=== PATIENT | female | born 1955 | race Caucasian/White ===

== ENCOUNTER 2021-03-09 16:18 | Inpatient (IN) | payer BC ==
[~2021-03-09] VITALS: Ht 157.5 cm; Wt 72.3 kg
[~2021-03-09 16:18] MED LIST: ASPI-482 PO; ATOR20TA58 PO; CLOP75TA PO; DIAZ5TAB PO; HYDR-3164 PO; LISI20TA18 PO; METO25TA4 PO; NAPR-695 PO
[2021-03-09] MEDS ORDERED: NITROGLYCERIN SUBLINGUAL 0.4 MG BOTTLE OF 25. SL PRN ×3 (16:30→18:30)
[2021-03-09 16:34] LABS: BASO # 0.3 x10^3/uL (0.0-0.2); BASO % 2 % (0-3); EOS # 0.4 x10^3/uL (0.0-0.7); EOS % 2 % (0-3); HEMATOCRIT 39.2 % (36.0-47.0); HEMOGLOBIN 13.2 g/dL (12.0-15.5); LYMPH # 6.5 x10^3/uL (1.0-4.8); LYMPH % 40 % (24-48); MEAN CORPUSCULAR HEMOGLOBIN 30 pg (25-35); MEAN CORPUSCULAR HGB CONC 34 g/dL (31-37); MEAN CORPUSCULAR VOLUME 89 fL (79-100); MONO # 1.7 x10^3/uL (0.0-1.1); MONO % 10 % (0-9); NEUT # 7.3 x10^3/uL (1.8-7.7); NEUT % 45 % (31-73); PLATELET COUNT 305 x10^3/uL (140-400); RED BLOOD COUNT 4.39 x10^6/uL (3.50-5.40); RED CELL DISTRIBUTION WIDTH 14.1 % (11.5-14.5); WHITE BLOOD COUNT 16.1 x10^3/uL (4.0-11.0)
--- NOTE | 2021-03-09 16:38 | PHYS DOC ---
Past Medical History Past Medical History: MS Past Surgical History: Other Additional Past Surgical Histo: cardiac stents Smoking Status: Current Every Day Smoker Alcohol Use: Rarely Drug Use: None General Adult EDM: Chief Complaint: CHEST PAIN HPI: HPI: Patient is a 65-year-old patient presenting via EMS for chest pain. Onset was 45 minutes ago while at rest. Patient was apparently shopping earlier in the day and was dropped off at her home by daughter. Reports shortly after being at home while at rest she developed substernal chest pain that radiated to left upper extremity. Nothing known made better or worse. Patient took an 81 mg aspirin in addition to previously taken 81 mg aspirin in the morning that did not significantly relieve her pain prompting her to call EMS. On arrival, patient found to be hemodynamically stable but there was concern for STEMI. She was subsequently given an additional 162 mg aspirin, 50 mcg intranasal fentanyl, and rushed to our ER emergently for evaluation. On arrival, patient still complaining of substernal chest pain radiating to left upper extremity that she rates 10/10 in severity. She admits history of CAD with numerous stents last of which was placed at our facility approximately 3 years ago. She has since been following in outpatient setting with [facility]'s cardiology team. She states she has been compliant with all medications, no major changes in health, no recent sick contacts or travel. She is fully vaccinated against COVID-19 Review of Systems: Review of Systems: Fourteen body systems of review of systems have been reviewed. See HPI for pertinent positives and negative responses, other infante all other systems are negative, non-pertinent or non-contributory Heart Score: C/O Chest Pain: Yes HEART Score for Chest Pain: HEART Score for Chest Pain Response (Comments) Value History Highly Suspicious [address] Depression 2 Age >45 - < 65 1 Risk Factors >3 Risk Factors or Hx CAD 2 Troponin >1-<3x Normal Limit 1 Total 8 Risk Factors: Risk Factors: DM, Current or recent (<one month) smoker, HTN, HLP, family history of CAD, obesity. Risk Scores: Score 0 - 3: 2.5% MACE over next 6 weeks - Discharge Home Score 4 - 6: 20.3% MACE over next 6 weeks - Admit for Clinical Observation Score 7 - 10: 72.7% MACE over next 6 weeks - Early Invasive Strategies Current Medications: Current Medications Medications (Trade) Dose Ordered Sig/Bianca Start Time Stop Time Status Last Admin Dose Admin Nitroglycerin (Nitrostat) 0.4 mg PRN Q5MIN PRN 03/09/21 16:30 Allergies: Allergies: Allergies Coded Allergies Type Severity Reaction Last Updated Verified No Known Drug Allergies 01/03/14 No Physical Exam: PE: Constitutional: Well developed, well nourished, acute distress due to pain HENT: Normocephalic, atraumatic, bilateral external ears normal, oropharynx moist, no oral exudates, nose normal. Eyes: PERRLA, EOMI, conjunctiva normal, no discharge. Neck: Normal range of motion, no tenderness, supple, no stridor. Cardiovascular: Heart rate regular, sinus rhythm, no murmurs rubs or gallops Lungs & Thorax: Bilateral breath sounds clear to auscultation Abdomen: Bowel sounds normal, soft, no tenderness, no masses, no pulsatile masses. Nonsurgical abdomen, no peritoneal signs Skin: Warm, dry, no erythema, no rash. Back: No tenderness, no CVA tenderness. Extremities: No tenderness, no cyanosis, no clubbing, ROM intact, no edema. Neurologic: Alert and oriented X 3, grossly normal motor & sensory function, no focal deficits noted. Psychologic: Anxious affect and mood Current Patient Data: Labs: Laboratory Tests Test 03/09/21 16:17 White Blood Count 16.1 x10^3/uL Red Blood Count 4.39 x10^6/uL Hemoglobin 13.2 g/dL Hematocrit 39.2 % Mean Corpuscular Volume 89 fL Mean Corpuscular Hemoglobin 30 pg Mean Corpuscular Hemoglobin Concent 34 g/dL Red Cell Distribution Width 14.1 % Platelet Count 305 x10^3/uL Neutrophils (%) (Auto) 45 % Lymphocytes (%) (Auto) 40 % Monocytes (%) (Auto) 10 % Eosinophils (%) (Auto) 2 % Basophils (%) (Auto) 2 % Neutrophils # (Auto) 7.3 x10^3/uL Lymphocytes # (Auto) 6.5 x10^3/uL Monocytes # (Auto) 1.7 x10^3/uL Eosinophils # (Auto) 0.4 x10^3/uL Basophils # (Auto) 0.3 x10^3/uL Sodium Level 136 mmol/L Potassium Level 3.4 mmol/L Chloride Level 100 mmol/L Carbon Dioxide Level 24 mmol/L Anion Gap 12 Blood Urea Nitrogen 13 mg/dL Creatinine 0.8 mg/dL Estimated GFR (Cockcroft-Gault) 72.4 BUN/Creatinine Ratio 16 Glucose Level 155 mg/dL Calcium Level 8.7 mg/dL Total Bilirubin 0.2 mg/dL Aspartate Amino Transf (AST/SGOT) 34 U/L Alanine Aminotransferase (ALT/SGPT) 46 U/L Alkaline Phosphatase 144 U/L Troponin I High Sensitivity 141 ng/L IF-Bki-J-Type Natriuretic Peptide 212 pg/mL Total Protein 6.7 g/dL Albumin 3.0 g/dL Albumin/Globulin Ratio 0.8 Current Medications Medications (Trade) Dose Ordered Sig/Bianca Route PRN Reason Start Time Stop Time Status Last Admin Dose Admin Nitroglycerin (Nitrostat) 0.4 mg PRN Q5MIN PRN SL CP RATING > 04/0903/09/21 16:30 03/09/21 17:49 DC 03/09/21 16:54 Nitroglycerin (Nitrostat) 0.4 mg PRN Q5MIN PRN SL CHEST PAIN 03/09/21 16:30 Fentanyl Citrate (Fentanyl 2ml Vial) 50 mcg 1X ONCE IVP 03/09/21 17:30 03/09/21 17:31 DC 03/09/21 17:37 Fentanyl Citrate (Fentanyl 2ml Vial) 50 mcg 1X ONCE IVP 03/09/21 17:30 03/09/21 17:31 DC 03/09/21 18:44 Heparin Sodium (Porcine) (Heparin Sodium) 4,000 unit 1X ONCE IV 03/09/21 18:00 03/09/21 18:01 DC 03/09/21 18:46 Heparin Sodium/ Dextrose 250 ml @ 9 mls/hr CONT PRN IV PER PROTOCOL 03/09/21 18:00 03/09/21 18:48 Heparin Sodium (Porcine) (Heparin Sodium) 1,900 unit PRN Q6HRS PRN IV FOR UFH LEVEL LESS THAN 0.2 03/09/21 18:00 Ceftriaxone Sodium (Rocephin) 1 gm Q24H IVP 03/09/21 18:00 Potassium Chloride (Klor-Con) 40 meq 1X ONCE PO 03/09/21 18:00 03/09/21 18:01 DC 03/09/21 18:40 Acetaminophen (Tylenol) 650 mg PRN Q4HRS PRN PO FEVER > 100.3'F 03/09/21 18:30 03/10/21 18:29 Nitroglycerin (Nitrostat) 0.4 mg PRN Q5MIN PRN SL CHEST PAIN 03/09/21 18:30 03/10/21 18:29 UNV Vital Signs: Vital Signs Date Time Temp Pulse Resp B/P (MAP) Pulse Ox O2 Delivery O2 Flow Rate FiO2 03/09/21 16:18 97.8 55 18 161/77 (105) 95 Room Air 97.8 EKG: EKG: EKG ordered and interpreted by myself at 1614 hrs. as sinus bradycardia at 51 bpm, unremarkable intervals, no axis deviation, T wave inversion noted in lead aVL, no STEMI repeat EKG ordered and itnerpretted by myself at 1800hrs as SR at 59bpm, unremarkable intervals, no axis deviation, persistant AVL T-wave depressions, no STEMI (confirmed by Defensive Driving Instructor attending as no STEMI) Radiology/Procedures: Radiology/Procedures: EXAMINATION: XR CHEST 1V CLINICAL HISTORY: Chest pain EXAM DATE/TIME: 03/09/2021 4:36 PM COMPARISON: None FINDINGS: Lines, Tubes, and Devices: None. Cardiomediastinal Silhouette: Normal heart size. Aortic atherosclerotic calcification. Lungs and Pleura: Mild patchy opacities in the bilateral lower lung zones and nonspecific interstitial prominence. No evidence of pleural effusion or pneumothorax. Bones and Soft Tissues: No acute osseous abnormality. IMPRESSION: Mild patchy airspace disease and bilateral lower lung zones and nonspecific interstitial prominence. Electronically signed by: Jacob Lozano DO (03/09/2021 5:38 PM) [facility] Course & Med Decision Making: Course & Med Decision Making Airway patent, breathing unlabored, IV access and vitals obtained grossly no nconcerning EKG obtained at bedside nonconcerning for ST elevation MS History, physical exam and comprehensive ER work-up obtained concerning for elevated troponin and an extremely high risk individual. Patient took x1 sublingual nitro with improvement in pain but sided headache, did not want to take anymore. As such, a total of 100 mcg fentanyl given while in ER with improvement in pain I contacted on-call sample display preparer attending and reviewed EKG findings and my concern for unstable angina with inferior T wave abnormalities. No emergent need for heart catheterization but joint decision made to start heparin drip and continue to monitor pain closely with low threshold to start nitro drip I contacted hospitalist and discussed need for admission to [facility], Dr. Condon agreed to need and accepted patient under his care I have updated patient and daughter at bedside on plan of care that included hospital admission for further inpatient medical management, cardiac observation and potential need for heart cath given history. They were amenable All questions and concerns patient and daughter had addressed. Patient confirms she is full code at time of admission. Critical Care Time This patient required critical care. Due to the fact that the patient required a significant amount of one on one physician - patient contact time, ordering and review of studies, arranging urgent treatment with development of a management plan, evaluation of patients response to treatment with frequent reassessments, and discussions with other providers this patient required 35 minutes of critical care time. Critical care time was indicated due to the inherent i nstability and/or potential for instability in this patient. The critical care time that is allocated to this patient is above and beyond any time spent on any other billable procedures performed on this patient. [employer] Disclaimer: [employer] Disclaimer: This electronic medical record was generated, in whole or in part, using a voice recognition dictation system. Departure Departure Impression: Primary Impression: Unstable angina Additional Impression: Presence of stent in coronary artery in patient with coronary artery disease Disposition: ADMITTED INPATIENT Admitting Physician: MARSHA (dr condon) Condition: GUARDED Referrals: LUCIA MELCHOR (PCP) DILIP SERNA DO Mar 09, 2021 16:38
[2021-03-09 16:52] LABS: CALCIUM 8.7 mg/dL (8.5-10.1); CREATININE 0.8 mg/dL (0.6-1.0); GFR 72.4; POTASSIUM 3.4 mmol/L (3.5-5.1)
[2021-03-09 16:57] LABS: ALBUMIN/GLOBULIN RATIO 0.8 (1.0-1.7); TOTAL BILIRUBIN 0.2 mg/dL (0.2-1.0); TOTAL PROTEIN 6.7 g/dL (6.4-8.2)
[2021-03-09] MEDS ORDERED: fentaNYL PF VIAL 100 MCG/2 ML VIAL IVP ONE ×2 (17:30)
--- NOTE | 2021-03-09 17:41 | RAD ---
EXAMINATION: XR CHEST 1V CLINICAL HISTORY: Chest pain EXAM DATE/TIME: 03/09/2021 4:36 PM COMPARISON: None FINDINGS: Lines, Tubes, and Devices: None. Cardiomediastinal Silhouette: Normal heart size. Aortic atherosclerotic calcification. Lungs and Pleura: Mild patchy opacities in the bilateral lower lung zones and nonspecific interstitia l prominence. No evidence of pleural effusion or pneumothorax. Bones and Soft Tissues: No acute osseous abnormality. IMPRESSION: Mild patchy airspace disease and bilateral lower lung zones and nonspecific interstitial prominence. Electronically signed by: Jacob Lozano DO (03/09/2021 5:38 PM) [facility]
[2021-03-09] MEDS ORDERED: HEPARIN for IV BOLUS 10,000 UNIT/10 ML VIAL. IV PRN (18:00)
[2021-03-09] MEDS ORDERED: HEPARIN for IV BOLUS 10,000 UNIT/10 ML VIAL. IV ONE (18:00)
[2021-03-09] MEDS ORDERED: POTASSIUM CHLORIDE 20 MEQ TABLET.ER. PO ONE (18:00)
[2021-03-09] MEDS ORDERED: HEPARIN 25,000UTS/250ML PREMIX 250 ML IV PRN (18:00)
[2021-03-09] MEDS ORDERED: ACETAMINOPHEN 325 MG TABLET. PO PRN (18:30)
--- NOTE | 2021-03-09 19:10 | HP ---
DATE OF SERVICE: 03/09/2021 ADMIT DATE: 03/09/2021 CHIEF COMPLAINT: Chest pain. HISTORY OF PRESENT ILLNESS: The patient is a pleasant, middle-aged female who does smokes too much. She has 4 previous coronary stents. I discussed the case with ER physician. Her troponins were a little high. She appears to have symptoms of acute coronary syndrome. We are going to admit the patient, put on a heparin drip and consult Cardiology. PAST MEDICAL HISTORY: Coronary artery disease, 4 previous stents, tobacco abuse, myocardial infarction. MEDICATIONS: Reviewed. Please refer to the MRAD. REVIEW OF SYSTEMS: GENERAL: No history of weight change, weakness or fevers. SKIN: No bruising, hair changes or rashes. EYES: No blurred, double or loss of vision. NOSE AND THROAT: No history of nosebleeds, hoarseness or sore throat. HEART: She complained of chest pain. LUNGS: Denies cough, hemoptysis, wheezing or shortness of breath. GASTROINTESTINAL: Denies changes in appetite, nausea, vomiting, diarrhea or constipation. GENITOURINARY: No history of frequency, urgency, hesitancy or nocturia. NEUROLOGIC: Denies history of numbness, tingling, tremor or weakness. PSYCHIATRIC: No history of panic, anxiety or depression. ENDOCRINE: No history of heat or cold intolerance, polyuria or polydipsia. EXTREMITIES: Denies muscle weakness, joint pain, pain on walking or stiffness. PHYSICAL EXAMINATION: VITALS: Within normal limits and are stable. GENERAL: No apparent distress. Alert and oriented. HEENT: Normal cephalic atraumatic, external auditory canals are patent EYES: Extraocular muscles are intact, pupils are equally round and reactive to light and accommodation MUSCULOSKELETAL: Well developed, well nourished, good range of motion ENDOCRINE: No thyromegaly was palpated LYMPHATICS: No cervical chain or axillary nodes were noted HEMATOPOIETIC: No bruising NECK: Supple, no JVD, no thyromegaly was noted. LUNGS: Clear to auscultation in all lung jessica without rhonchi or wheezing. HEART: RRR, S1, S2 present. Peripheral pulses intact, no obvious murmurs were noted. ABDOMEN: Soft, nontender. Positive bowel sounds no organomegaly, normal bowel sounds. EXTREMITIES: Without any cyanosis, clubbing, or edema. Pedal pulses intact, Homans sign is negative. NEUROLOGIC: She is weak. PSYCHIATRIC: She is depressed. SKIN: She seems to be a ageing probably from the cigarettes. VASCULAR: Good capillary refill, neurovascular bundle appears to be intact. LABORATORY DATA: Potassium is little low at 3.4. Troponin is high at 141. BNP 212, alkaline phosphatase 144. White count 16, hemoglobin 13, platelets 305. DIAGNOSTIC DATA: Chest x-ray shows mild patchy airspace disease in bilateral lower lung zones and nonspecific interstitial prominence. ASSESSMENT AND PLAN: Chest pain with elevated troponin, leukocytosis, abnormal chest x-ray. The patient will be admitted. We will start heparin drip. Cardiac monitoring, serial enzymes, serial EKGs. Consult Cardiology. Empiric IV Rocephin. Home meds. Deep venous thrombosis prophylaxis. Full code. Suspect she might go to the lab aid, but we will await Cardiology input. Prognosis guarded. PB/MODESTA DR: Disha TID: [id number]
[2021-03-09] MEDS: MORPHINE SULFATE 2 MG/ML INJ. IVP PRN (20:53)
[2021-03-10] VITALS (11 sets, daily range): BP systolic 121–160; BP diastolic 60–84
[2021-03-10] MEDS: MORPHINE SULFATE 2 MG/ML INJ. IVP PRN ×4 (00:42→13:47)
[2021-03-10] MEDS ORDERED: ONDANSETRON PF 4 MG/2 ML VIAL. IVP PRN (01:30)
[2021-03-10] MEDS ORDERED: NITROGLYCERIN PREMIX 250 ML IV PRN (02:15)
[2021-03-10 02:45] LABS: HEMATOCRIT 39.1 % (36.0-47.0); HEMOGLOBIN 13.1 g/dL (12.0-15.5); RED BLOOD COUNT 4.38 x10^6/uL (3.50-5.40); RED CELL DISTRIBUTION WIDTH 14.3 % (11.5-14.5)
--- NOTE | 2021-03-10 02:57 | NUR ---
Dr. Ferrara called and alerted of pts. rhythm, rate, pain level and earlier troponin level. Order taken.
--- NOTE | 2021-03-10 04:29 | EKG ---
[facility] [address] [place] [address] Test Date: 2021-03-09 Test Time: 16:14:05 Pat Name: ARIE MAHONEY Department: Room: Gender: F Germ Drier: [id number] : 1955 Requested By: DILIP SERNA Order Number: [id number] Reading MD: Measurements Intervals [place] Rate: 51 P: 56 KS: 182 QRS: 40 QRSD: 92 T: 89 QT: 464 QTc: 430 Interpretive Statements SINUS RHYTHM CONSIDER RIGHT VENTRICULAR HYPERTROPHY ST & T ABNORMALITY, CONSIDER HIGH LATERAL ISCHEMIA OR LEFT VENTRICULAR STRAIN ABNORMAL ECG RI6.01 No previous ECG available for comparison
--- NOTE | 2021-03-10 07:00 | NUR ---
Dr. Ferrara contacted and alerted of pts troponin increase. Dr. Ferrara requested consents to be signed for cardiac cath. Info passed to nurse Osorio while in report.
[2021-03-10] MEDS ORDERED: LIDOCAINE 1% PF 2 ML VIAL. ONE (08:51)
[2021-03-10] MEDS ORDERED: IODIXANOL 320 MG/ML 100 ML VIAL. ONE ×2 (08:51→09:42)
[2021-03-10] MEDS ORDERED: FLU VACC QUAD 21-22 (6MOS+) PF 0.5 ML SYRINGE. VAX IM ONE (09:00)
[2021-03-10] MEDS ORDERED: VERAPAMIL 5 MG/2 ML VIAL. ONE (09:00)
[2021-03-10] MEDS ORDERED: NITROGLYCERIN 200 MCG/2 ML SYRINGE FOR CATH/VASC LAB. ONE (09:00)
[2021-03-10] MEDS ORDERED: fentaNYL PF VIAL 100 MCG/2 ML VIAL ONE (09:00)
[2021-03-10] MEDS ORDERED: HEPARIN for IV BOLUS 10,000 UNIT/10 ML VIAL. ONE (09:00)
[2021-03-10] MEDS ORDERED: MIDAZOLAM HCL/PF 5 MG/5 ML VIAL. ONE (09:00)
[2021-03-10] MEDS ORDERED: fentaNYL PF VIAL 100 MCG/2 ML VIAL IV ONE (09:15)
[2021-03-10] MEDS ORDERED: HEPARIN for IV BOLUS 10,000 UNIT/10 ML VIAL. IART ONE (09:15)
[2021-03-10] MEDS ORDERED: LIDOCAINE 1% PF 2 ML VIAL. INJ ONE (09:15)
[2021-03-10] MEDS ORDERED: NITROGLYCERIN 200 MCG/2 ML SYRINGE FOR CATH/VASC LAB. IART ONE (09:15)
[2021-03-10] MEDS ORDERED: VERAPAMIL 5 MG/2 ML VIAL. IART ONE (09:15)
[2021-03-10] MEDS ORDERED: IODIXANOL 320 MG/ML 100 ML VIAL. IART ONE (09:15)
[2021-03-10] MEDS ORDERED: MIDAZOLAM HCL/PF 5 MG/5 ML VIAL. IV ONE (09:15)
--- NOTE | 2021-03-10 09:19 | PDOC ---
MODERATE SEDATION ASSESSMENT RISKS/ALTERNATIVES Risks/Alternatives Risks and alternatives of this type of sedation and procedure discussed with: RISK/ALTERNATIVES: Patient H & P ON CHART H & P H & P on chart and reviewed for co-morbid conditions and appropriate labs. H&P ON CHART: Yes STATUS PREG STATUS ASSESSED: N/A MEDS/ALLERGIES REVIEWED Meds/Allergies Reviewed Medications and Allergies including time and route of recently administered narcotics and sedatives. MEDS/ALLERGIES REVIEWED: Yes ASA RATING ASA RATING: III AIRWAY ASSESSMENT Airway Assessment Airway patency, oral function limitations, presence of caps, crowns, dentures, partials, and ability to extend neck assessed. AIRWAY ASSESSMENT: Yes MALLAMPATI SCORE MALLAMPATI SCORE: II PRE-SEDATION ASSESSMENT PRE-SEDATION ASSESSMENT: Yes ALFREDO TIDWELL MD Mar 10, 2021 09:19
--- NOTE | 2021-03-10 09:19 | PDOC2 ---
CONSULT Date of Consult Date of Consult DATE: 03/10/21 TIME: 09:19 Reason for Consult Reason for Consult: Chest pain and elevated troponin level Referring Physician Referring Physician: Dr. Condon Identification/Chief Complaint Chief Complaint Chest pain Source Source: Chart review, Patient History of Present Illness Reason for Visit: 65-year-old female with history of coronary artery disease s/p PCI/stents placement 12 years ago, being followed by [facility] cardiology presented with retrosternal chest pain radiating to left arm, 10/10 severity that started at 3 PM yesterday. The pain has been waxing and waning and upon my exam, she stated the pain was at 3/10 severity. She denied any orthopnea/PND, palpitations or syncope. Past Medical History Past Medical History Coronary artery disease s/p PCI/stents placement 12 years ago Hypertension Hyperlipidemia Family History Family History Positive for coronary artery disease Social History Social History Patient smokes half pack of cigarettes daily and admitted to social intake of alcohol. She denied any drug abuse. Current Problem List Problem List Problems Medical Problems: (1) Presence of stent in coronary artery in patient with coronary artery disease Status: Acute Current Medications Current Medications Current Medications Nitroglycerin (Nitrostat) 0.4 mg PRN Q5MIN PRN SL CP RATING > 1/10 Last administered on 03/09/21at 16:54; Start 03/09/21 at 16:30; Stop 03/09/21 at 17:49; Status DC Nitroglycerin (Nitrostat) 0.4 mg PRN Q5MIN PRN SL CHEST PAIN; Start 03/09/21 at 16:30 Fentanyl Citrate (Fentanyl 2ml Vial) 50 mcg 1X ONCE IVP Last administered on 03/09/21at 17:37; Start 03/09/21 at 17:30; Stop 03/09/21 at 17:31; Status DC Fentanyl Citrate (Fentanyl 2ml Vial) 50 mcg 1X ONCE IVP Last administered on 03/09/21at 18:44; Start 03/09/21 at 17:30; Stop 03/09/21 at 17:31; Status DC Heparin Sodium (Porcine) (Heparin Sodium) 4,000 unit 1X ONCE IV Last administered on 03/09/21at 18:46; Start 03/09/21 at 18:00; Stop 03/09/21 at 18:01; Status DC Heparin Sodium/ Dextrose 250 ml @ 9 mls/hr CONT PRN IV PER PROTOCOL Last administered on 03/09/21at 18:48; Start 03/09/21 at 18:00 Heparin Sodium (Porcine) (Heparin Sodium) 1,900 unit PRN Q6HRS PRN IV FOR UFH LEVEL LESS THAN 0.2; Start 03/09/21 at 18:00 Ceftriaxone Sodium (Rocephin) 1 gm Q24H IVP Last administered on 03/10/21at 00:00; Start 03/09/21 at 18:00 Potassium Chloride (Klor-Con) 40 meq 1X ONCE PO Last administered on 03/09/21at 18:40; Start 03/09/21 at 18:00; Stop 03/09/21 at 18:01; Status DC Acetaminophen (Tylenol) 650 mg PRN Q4HRS PRN PO FEVER > 100.3'F; Start 03/09/21 at 18:30; Stop 03/10/21 at 18:29 Nitroglycerin (Nitrostat) 0.4 mg PRN Q5MIN PRN SL CHEST PAIN; Start 03/09/21 at 18:30; Stop 03/10/21 at 18:29; Status UNV Morphine Sulfate (Morphine Sulfate) 2 mg PRN Q2HR PRN IVP CHEST PAIN Last administered on 03/10/21at 07:48; Start 03/09/21 at 20:45 Ondansetron HCl (Zofran) 4 mg PRN Q6HRS PRN IVP NAUSEA/VOMITING Last administered on 03/10/21at 07:47; Start 03/10/21 at 01:30 Influenza Virus Vaccine Quadrival (Flulaval Quad [id number] Syringe) 0.5 ml ONCE ONCE VAX IM ; Start 03/10/21 at 09:00; Stop 03/10/21 at 09:01; Status DC Nitroglycerin/ Dextrose 250 ml @ 1.5 mls/hr CONT PRN IV SEE I/O RECORD Last administered on 03/10/21at 02:27; Start 03/10/21 at 02:15 Iodixanol (Visipaque 320) 100 ml STK-MED ONCE .ROUTE ; Start 03/10/21 at 08:51; Stop 03/10/21 at 08:51; Status DC Lidocaine HCl (Xylocaine-Mpf 1% 2ml Vial) 2 ml STK-MED ONCE .ROUTE ; Start 03/10/21 at 08:51; Stop 03/10/21 at 08:51; Status DC Heparin Sodium/ Sodium Chloride 1,000 ml @ As Directed STK-MED ONCE .ROUTE ; Start 03/10/21 at 08:51; Stop 03/10/21 at 08:51; Status DC Fentanyl Citrate (Fentanyl 2ml Vial) 100 mcg STK-MED ONCE .ROUTE ; Start 03/10/21 at 09:00; Stop 03/10/21 at 09:00; Status DC Midazolam HCl (Versed) 5 mg STK-MED ONCE .ROUTE ; Start 03/10/21 at 09:00; Stop 03/10/21 at 09:00; Status DC Heparin Sodium (Porcine) (Heparin Sodium) 10,000 unit STK-MED ONCE .ROUTE ; Start 03/10/21 at 09:00; Stop 03/10/21 at 09:00; Status DC Verapamil HCl (Verapamil) 5 mg STK-MED ONCE .ROUTE ; Start 03/10/21 at 09:00; Stop 03/10/21 at 09:00; Status DC Nitroglycerin (Nitroglycerin) 200 mcg STK-MED ONCE .ROUTE ; Start 03/10/21 at 09:00; Stop 03/10/21 at 09:00; Status DC Nitroglycerin (Nitroglycerin) 200 mcg 1X ONCE IART ; Start 03/10/21 at 09:15; Stop 03/10/21 at 09:16; Status DC Verapamil HCl (Verapamil) 2.5 mg 1X ONCE IART ; Start 03/10/21 at 09:15; Stop 03/10/21 at 09:16; Status DC Heparin Sodium (Porcine) (Heparin Sodium) 2,500 unit 1X ONCE IART ; Start 03/10/21 at 09:15; Stop 03/10/21 at 09:16; Status DC Heparin Sodium/ Sodium Chloride (HEPARIN for ARTERIAL LINE FLUSH) 1,000 unit 1X ONCE IART ; Start 03/10/21 at 09:15; Stop 03/10/21 at 09:16; Status DC Midazolam HCl (Versed) 5 mg 1X ONCE IV ; Start 03/10/21 at 09:15; Stop 03/10/21 at 09:16; Status DC Fentanyl Citrate (Fentanyl 2ml Vial) 100 mcg 1X ONCE IV ; Start 03/10/21 at 09:15; Stop 03/10/21 at 09:16; Status DC Iodixanol (Visipaque 320) 100 ml 1X ONCE IART ; Start 03/10/21 at 09:15; Stop 03/10/21 at 09:16; Status DC Lidocaine HCl (Xylocaine-Mpf 1% 2ml Vial) 2 ml 1X ONCE INJ ; Start 03/10/21 at 09:15; Stop 03/10/21 at 09:16; Status DC Active Scripts Active Reported Aspir 81 (Aspirin) 81 Mg Tablet.dr 1 Tab PO DAILY Clopidogrel (Clopidogrel Bisulfate) 75 Mg Tablet 1 Tab PO DAILY Metoprolol Tartrate 25 Mg Tablet 1 Tab PO BID Atorvastatin Calcium 20 Mg Tablet 1 Tab PO DAILY Lisinopril 20 Mg Tablet 1 Tab PO DAILY Allergies Allergies: Coded Allergies: No Known Drug Allergies (Unverified , 01/03/14) ROS PSYCHOLOGICAL ROS: No: Hallucinations Eyes: No Loss of vision HEENT: No: Epistaxis Respiratory: No: Hemoptysis, Shortness of breath Cardiovascular: yes Chest Pain Gastrointestinal: No Vomiting Genitourinary: No Hematuria Neurological: No Seizures Skin: No Rash Physical Exam General: Alert, Oriented X3 HEENT: Atraumatic Lungs: Clear to auscultation Heart: Regular rate Abdomen: Soft Extremities: No edema Neuro: Normal speech Psych/Mental Status: Mood NL Vitals VITALS Vital Signs Date Time Temp Pulse Resp B/P (MAP) Pulse Ox O2 Delivery O2 Flow Rate FiO2 03/10/21 08:18 20 94 Nasal Cannula 2.0 03/10/21 07:00 97.6 54 133/65 (87) 97.6 Labs Labs Laboratory Tests Test 03/09/21 16:17 03/09/21 22:47 03/10/21 02:30 White Blood Count 16.1 x10^3/uL (4.0-11.0) 12.0 x10^3/uL (4.0-11.0) Red Blood Count 4.39 x10^6/uL (3.50-5.40) 4.38 x10^6/uL (3.50-5.40) Hemoglobin 13.2 g/dL (12.0-15.5) 13.1 g/dL (12.0-15.5) Hematocrit 39.2 % (36.0-47.0) 39.1 % (36.0-47.0) Mean Corpuscular Volume 89 fL (79-100) 89 fL (79-100) Mean Corpuscular Hemoglobin 30 pg (25-35) 30 pg (25-35) Mean Corpuscular Hemoglobin Concent 34 g/dL (31-37) 34 g/dL (31-37) Red Cell Distribution Width 14.1 % (11.5-14.5) 14.3 % (11.5-14.5) Platelet Count 305 x10^3/uL (140-400) 272 x10^3/uL (140-400) Neutrophils (%) (Auto) 45 % (31-73) Lymphocytes (%) (Auto) 40 % (24-48) Monocytes (%) (Auto) 10 % (0-9) Eosinophils (%) (Auto) 2 % (0-3) Basophils (%) (Auto) 2 % (0-3) Neutrophils # (Auto) 7.3 x10^3/uL (1.8-7.7) Lymphocytes # (Auto) 6.5 x10^3/uL (1.0-4.8) Monocytes # (Auto) 1.7 x10^3/uL (0.0-1.1) Eosinophils # (Auto) 0.4 x10^3/uL (0.0-0.7) Basophils # (Auto) 0.3 x10^3/uL (0.0-0.2) Sodium Level 136 mmol/L (136-145) Potassium Level 3.4 mmol/L (3.5-5.1) Chloride Level 100 mmol/L (98-107) Carbon Dioxide Level 24 mmol/L (21-32) Anion Gap 12 (6-14) Blood Urea Nitrogen 13 mg/dL (7-20) Creatinine 0.8 mg/dL (0.6-1.0) Estimated GFR (Cockcroft-Gault) 72.4 BUN/Creatinine Ratio 16 (6-20) Glucose Level 155 mg/dL (70-99) Calcium Level 8.7 mg/dL (8.5-10.1) Total Bilirubin 0.2 mg/dL (0.2-1.0) Aspartate Amino Transf (AST/SGOT) 34 U/L (15-37) Alanine Aminotransferase (ALT/SGPT) 46 U/L (14-59) Alkaline Phosphatase 144 U/L (46-116) Troponin I High Sensitivity 141 ng/L (4-50) 639 ng/L (4-50) 2662 ng/L (4-50) RV-Esr-E-Type Natriuretic Peptide 212 pg/mL (0-124) Total Protein 6.7 g/dL (6.4-8.2) Albumin 3.0 g/dL (3.4-5.0) Albumin/Globulin Ratio 0.8 (1.0-1.7) Heparin Anti-Xa Act, Unfractionated 0.21 IU/mL (0.30-0.70) Laboratory Tests Test 03/09/21 16:17 03/09/21 22:47 03/10/21 02:30 White Blood Count 16.1 x10^3/uL (4.0-11.0) 12.0 x10^3/uL (4.0-11.0) Red Blood Count 4.39 x10^6/uL (3.50-5.40) 4.38 x10^6/uL (3.50-5.40) Hemoglobin 13.2 g/dL (12.0-15.5) 13.1 g/dL (12.0-15.5) Hematocrit 39.2 % (36.0-47.0) 39.1 % (36.0-47.0) Mean Corpuscular Volume 89 fL (79-100) 89 fL (79-100) Mean Corpuscular Hemoglobin 30 pg (25-35) 30 pg (25-35) Mean Corpuscular Hemoglobin Concent 34 g/dL (31-37) 34 g/dL (31-37) Red Cell Distribution Width 14.1 % (11.5-14.5) 14.3 % (11.5-14.5) Platelet Count 305 x10^3/uL (140-400) 272 x10^3/uL (140-400) Neutrophils (%) (Auto) 45 % (31-73) Lymphocytes (%) (Auto) 40 % (24-48) Monocytes (%) (Auto) 10 % (0-9) Eosinophils (%) (Auto) 2 % (0-3) Basophils (%) (Auto) 2 % (0-3) Neutrophils # (Auto) 7.3 x10^3/uL (1.8-7.7) Lymphocytes # (Auto) 6.5 x10^3/uL (1.0-4.8) Monocytes # (Auto) 1.7 x10^3/uL (0.0-1.1) Eosinophils # (Auto) 0.4 x10^3/uL (0.0-0.7) Basophils # (Auto) 0.3 x10^3/uL (0.0-0.2) Sodium Level 136 mmol/L (136-145) Potassium Level 3.4 mmol/L (3.5-5.1) Chloride Level 100 mmol/L (98-107) Carbon Dioxide Level 24 mmol/L (21-32) Anion Gap 12 (6-14) Blood Urea Nitrogen 13 mg/dL (7-20) Creatinine 0.8 mg/dL (0.6-1.0) Estimated GFR (Cockcroft-Gault) 72.4 BUN/Creatinine Ratio 16 (6-20) Glucose Level 155 mg/dL (70-99) Calcium Level 8.7 mg/dL (8.5-10.1) Total Bilirubin 0.2 mg/dL (0.2-1.0) Aspartate Amino Transf (AST/SGOT) 34 U/L (15-37) Alanine Aminotransferase (ALT/SGPT) 46 U/L (14-59) Alkaline Phosphatase 144 U/L (46-116) Troponin I High Sensitivity 141 ng/L (4-50) 639 ng/L (4-50) 2662 ng/L (4-50) CY-Cku-X-Type Natriuretic Peptide 212 pg/mL (0-124) Total Protein 6.7 g/dL (6.4-8.2) Albumin 3.0 g/dL (3.4-5.0) Albumin/Globulin Ratio 0.8 (1.0-1.7) Heparin Anti-Xa Act, Unfractionated 0.21 IU/mL (0.30-0.70) Assessment/Plan Assessment/Plan 1. Acute non-STEMI with ongoing chest pain. EKG without any acute ST elevations. Continue heparin infusion per protocol and proceed with cardiac catheterization and possible angioplasty. Risks and benefits were explained and she is agreeable. 2. Hypertension: Controlled 3. Hyperlipidemia: Continue statin therapy 4. Tobacco abuse: Advised on smoking cessation Thank you for your consultation ALFREDO TIDWELL MD Mar 10, 2021 09:19
[2021-03-10] MEDS ORDERED: BIVALIRUDIN 250 MG VIAL. IV ONE ×2 (09:37→10:00)
--- NOTE | 2021-03-10 10:53 | CARD ---
MR#: [id number] Date of Study: 03/10/2021 Ordering Physician: ALFREDO FERRARA, Referring Physician: ALFREDO FERRARA Tech: RT Rosemary(R) APPROVED REPORT Technologist: RT Rosemary(R) Nurse: Huyen Ramírez RN Procedure(s) performed: Left heart catheterization, selective coronary angiography and left ventricul ography via right transradial approach FL TIME: 5.3 MINUTES DOSE: 53.27 Gycm2 CONTRAST: 124CC'S VISI MODERATE SEDATION: 38 MINUTES INDICATION The indication(s) include : non-STEMI . [facility] Clinical Frailty Scale [facility] Clinical Frailty Scale: Mildly Frail Heart Failure Heart Failure: No CASE TECHNIQUE IV conscious sedation was used throughout procedure with appropriate monitoring and was performed in the presence of a registered nurse who was an independent trained observer other than the physician p erforming the procedure. During this case, Fluoroscopy and low osmolar contrast were used for imaging . Specimen(s) Removed: No Estimated Blood loss: 15 cc's. PROCEDURE NARRATIVE After explaining the risks, benefits and alternative options, informed consent was obtained from alfreda ent. Patient was brought to the cardiac Radiologic Technology Program Director and right wrist was prepped and draped in the usual fashion after confirming a positive modified Markos's test. Arterial access was obtained in the righ t radial artery and a 6 Nigerian sheath was inserted. 6 Nigerian Fredi catheter was used to perform john ective angiography of the left and right coronary arteries. 6 Nigerian pigtail catheter was used to pe rform left ventriculography. Patient tolerated the procedure well. Hemostasis was achieved using TR band. There were no immediate complications. The following findings were noted. FINDINGS 1. Hemodynamics: Left ventricular end-diastolic pressure of 26 mmHg consistent with acute diastolic heart failure. No pullback gradient across the aortic valve. 2. Left ventriculography: Akinetic posterior basal wall with ejection fraction estimated at 55%. No significant mitral regurgitation seen. 3. Coronary angiography: a. The left main coronary artery arose from the left sinus of Valsalva, was short, gave rise to the left anterior descending and left circumflex arteries and did not show any significant stenosis. b. The left anterior descending artery showed 90% in-stent restenosis in the mid segment. c. The left circumflex artery showed 80% stenosis in the proximal segment. d. The right coronary artery was a dominant vessel arising from the right sinus of Valsalva that codey wed 99% subtotal occlusion involving the mid segment. Conclusion 1. Severe three-vessel coronary artery disease 2. Akinetic posterobasal wall with ejection fraction estimated at 55% Recommendations Cardiothoracic surgery team consultation for possible coronary artery bypass surgery Signed by : Alfredo Ferrara, Electronically Approved : 03/10/2021 10:53:10
--- NOTE | 2021-03-10 12:42 | PDOC ---
[employer] PROGRESS NOTE Date of Service DOS: DATE: 03/10/21 TIME: 12:41 Chief Complaint Chief Complaint Status post cardiac cath Multivessel coronary artery disease awaiting possible transfer for CABG Prior coronary artery disease, 4 previous stents, tobacco abuse, myocardial infarction. 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 They found three-vessel disease with 55% ejection fraction Cardiology trying to arrange possible transfer for CABG Vitals/I&O Vitals/I&O: Vital Signs Date Time Temp Pulse Resp B/P (MAP) Pulse Ox O2 Delivery O2 Flow Rate FiO2 03/10/21 12:14 132/76 (94) 03/10/21 12:00 18 90 Nasal Cannula 2.0 03/10/21 11:25 98.2 57 98.2 I & O 03/09/21 03/09/21 03/10/21 15:00 23:00 07:00 Intake Total 74.5 ml Balance 74.5 ml Physical Exam General: Alert Heart: Regular rate Lungs: Clear Abdomen: Normal bowel sounds Extremities: No clubbing Skin: No rashes Labs Labs: Laboratory Tests Test 03/09/21 16:17 03/09/21 22:47 03/10/21 02:30 03/10/21 09:00 White Blood Count 16.1 x10^3/uL (4.0-11.0) 12.0 x10^3/uL (4.0-11.0) Red Blood Count 4.39 x10^6/uL (3.50-5.40) 4.38 x10^6/uL (3.50-5.40) Hemoglobin 13.2 g/dL (12.0-15.5) 13.1 g/dL (12.0-15.5) Hematocrit 39.2 % (36.0-47.0) 39.1 % (36.0-47.0) Mean Corpuscular Volume 89 fL (79-100) 89 fL (79-100) Mean Corpuscular Hemoglobin 30 pg (25-35) 30 pg (25-35) Mean Corpuscular Hemoglobin Concent 34 g/dL (31-37) 34 g/dL (31-37) Red Cell Distribution Width 14.1 % (11.5-14.5) 14.3 % (11.5-14.5) Platelet Count 305 x10^3/uL (140-400) 272 x10^3/uL (140-400) Neutrophils (%) (Auto) 45 % (31-73) Lymphocytes (%) (Auto) 40 % (24-48) Monocytes (%) (Auto) 10 % (0-9) Eosinophils (%) (Auto) 2 % (0-3) Basophils (%) (Auto) 2 % (0-3) Neutrophils # (Auto) 7.3 x10^3/uL (1.8-7.7) Lymphocytes # (Auto) 6.5 x10^3/uL (1.0-4.8) Monocytes # (Auto) 1.7 x10^3/uL (0.0-1.1) Eosinophils # (Auto) 0.4 x10^3/uL (0.0-0.7) Basophils # (Auto) 0.3 x10^3/uL (0.0-0.2) Sodium Level 136 mmol/L (136-145) Potassium Level 3.4 mmol/L (3.5-5.1) Chloride Level 100 mmol/L (98-107) Carbon Dioxide Level 24 mmol/L (21-32) Anion Gap 12 (6-14) Blood Urea Nitrogen 13 mg/dL (7-20) Creatinine 0.8 mg/dL (0.6-1.0) Estimated GFR (Cockcroft-Gault) 72.4 BUN/Creatinine Ratio 16 (6-20) Glucose Level 155 mg/dL (70-99) Calcium Level 8.7 mg/dL (8.5-10.1) Total Bilirubin 0.2 mg/dL (0.2-1.0) Aspartate Amino Transf (AST/SGOT) 34 U/L (15-37) Alanine Aminotransferase (ALT/SGPT) 46 U/L (14-59) Alkaline Phosphatase 144 U/L (46-116) Troponin I High Sensitivity 141 ng/L (4-50) 639 ng/L (4-50) 2662 ng/L (4-50) UF-Xju-R-Type Natriuretic Peptide 212 pg/mL (0-124) Total Protein 6.7 g/dL (6.4-8.2) Albumin 3.0 g/dL (3.4-5.0) Albumin/Globulin Ratio 0.8 (1.0-1.7) Heparin Anti-Xa Act, Unfractionated 0.21 IU/mL (0.30-0.70) 0.46 IU/mL (0.30-0.70) Assessment and Plan Assessmemt and Plan Problems Medical Problems: (1) Presence of stent in coronary artery in patient with coronary artery disease Status: Acute Status post cardiac cath Multivessel coronary artery disease awaiting possible transfer for CABG Prior coronary artery disease, 4 previous stents, tobacco abuse, myocardial infarction. Plan Awaiting possible transfer for CABG For now continue cardiac monitoring Home meds DVT prophylaxis Full code N.p.o. Comment Review of Relevant I have reviewed the following items delma (where applicable) has been applied. Medications: Current Medications Medications (Trade) Dose Ordered Sig/Bianca Route PRN Reason Start Time Stop Time Status Last Admin Dose Admin Nitroglycerin (Nitrostat) 0.4 mg PRN Q5MIN PRN SL CP RATING > 04/0903/09/21 16:30 03/09/21 17:49 DC 03/09/21 16:54 Fentanyl Citrate (Fentanyl 2ml Vial) 50 mcg 1X ONCE IVP 03/09/21 17:30 03/09/21 17:31 DC 03/09/21 17:37 Fentanyl Citrate (Fentanyl 2ml Vial) 50 mcg 1X ONCE IVP 03/09/21 17:30 03/09/21 17:31 DC 03/09/21 18:44 Heparin Sodium (Porcine) (Heparin Sodium) 4,000 unit 1X ONCE IV 03/09/21 18:00 03/09/21 18:01 DC 03/09/21 18:46 Heparin Sodium/ Dextrose 250 ml @ 9 mls/hr CONT PRN IV PER PROTOCOL 03/09/21 18:00 03/09/21 18:48 Ceftriaxone Sodium (Rocephin) 1 gm Q24H IVP 03/09/21 18:00 03/10/21 00:00 Potassium Chloride (Klor-Con) 40 meq 1X ONCE PO 03/09/21 18:00 03/09/21 18:01 DC 03/09/21 18:40 Acetaminophen (Tylenol) 650 mg PRN Q4HRS PRN PO FEVER > 100.3'F 03/09/21 18:30 03/10/21 18:29 03/10/21 12:37 Morphine Sulfate (Morphine Sulfate) 2 mg PRN Q2HR PRN IVP CHEST PAIN 03/09/21 20:45 03/10/21 11:30 Ondansetron HCl (Zofran) 4 mg PRN Q6HRS PRN IVP NAUSEA/VOMITING 03/10/21 01:30 03/10/21 07:47 Nitroglycerin/ Dextrose 250 ml @ 1.5 mls/hr CONT PRN IV SEE I/O RECORD 03/10/21 02:15 03/10/21 02:27 Nitroglycerin (Nitroglycerin) 200 mcg 1X ONCE IART 03/10/21 09:15 03/10/21 09:16 DC 03/10/21 10:05 Verapamil HCl (Verapamil) 2.5 mg 1X ONCE IART 03/10/21 09:15 03/10/21 09:16 DC 03/10/21 10:06 Heparin Sodium (Porcine) (Heparin Sodium) 2,500 unit 1X ONCE IART 03/10/21 09:15 03/10/21 09:16 DC 03/10/21 10:07 Heparin Sodium/ Sodium Chloride (HEPARIN for ARTERIAL LINE FLUSH) 1,000 unit 1X ONCE IART 03/10/21 09:15 03/10/21 09:16 DC 03/10/21 10:03 Midazolam HCl (Versed) 5 mg 1X ONCE IV 03/10/21 09:15 03/10/21 09:16 DC 03/10/21 10:05 Fentanyl Citrate (Fentanyl 2ml Vial) 100 mcg 1X ONCE IV 03/10/21 09:15 03/10/21 09:16 DC 03/10/21 10:06 Iodixanol (Visipaque 320) 100 ml 1X ONCE IART 03/10/21 09:15 03/10/21 09:16 DC 03/10/21 10:03 Lidocaine HCl (Xylocaine-Mpf 1% 2ml Vial) 2 ml 1X ONCE INJ 03/10/21 09:15 03/10/21 09:16 DC 03/10/21 10:05 Justifications for Admission Other Justification NILES CARROLL III DO Mar 10, 2021 12:42
[2021-03-10] MEDS: cefTRIAXone IV Push 1 GM VIAL. IVP SCH ×2 (18:00)
[2021-03-10] MEDS ORDERED: NITROGLYCERIN OINT 1 GM PACKET. TP ONE (20:15)
--- NOTE | 2021-03-10 20:34 | NUR ---
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 No personal belongings with pt except pants that pt was wearing. Monitor pulled off, paperwork with pt.
[2021-03-11] MEDS ORDERED: NITROGLYCERIN OINT 1 GM PACKET. TP SCH
== END 2021-03-10 20:30 | disposition short-term general hospital (02) | DRG 282 ==
LOC: ER 16:18 → ED HOLD 18:00 → 6 SOUTH 21:48
PROVIDERS: ADMIT Internal Medicine; ATTEND Internal Medicine
PROC: 4A023N7 Measurement of Cardiac Sampling and Pressure, Left Heart, Percutaneous Approach (ICD-10-PCS; principal; 2021-03-10)
PROC: B215YZZ Fluoroscopy of Left Heart using Other Contrast (ICD-10-PCS; 2021-03-10)
PROC: B211YZZ Fluoroscopy of Multiple Coronary Arteries using Other Contrast (ICD-10-PCS; 2021-03-10)
DX: I21.4 Non-ST elevation (NSTEMI) myocardial infarction (principal); D72.829 Elevated white blood cell count, unspecified; I25.110 Atherosclerotic heart disease of native coronary artery with unstable angina pectoris; E78.5 Hyperlipidemia, unspecified; F17.210 Nicotine dependence, cigarettes, uncomplicated; I10 Essential (primary) hypertension; I25.2 Old myocardial infarction; Z82.49 Family history of ischemic heart disease and other diseases of the circulatory system; Z95.5 Presence of coronary angioplasty implant and graft; Z20.822 Contact with and (suspected) exposure to COVID-19
CPT/HCPCS: 36415; 71045; 80053; 83880; 84484; 85025; 85027; 85520; 87426; 93005; 93458; 96365; 96375; 96376; 99152; 99153; 99406; C1894; J0583; J0696; J1644; J2250; J2270; J2405; J3010; J3490; Q9967; 99291-25